=== PATIENT | male | born 1960 | race Caucasian/White ===

== ENCOUNTER 2024-04-09 06:23 | Day surgery (SDC) | payer BC, SELFPAY | END 2024-04-09 08:29 | disposition home or self-care (01) | LOC: GI 06:23 | PROVIDERS: ATTENDING PHYSICIAN Internal Medicine Gastroenterology; FAMILY PHYSICIAN Internal Medicine | DX: Z12.11 Encounter for screening for malignant neoplasm of colon (principal); K63.5 Polyp of colon; K57.30 Diverticulosis of large intestine without perforation or abscess without bleeding; K64.8 Other hemorrhoids; Z86.0100 Personal history of colon polyps, unspecified | CPT/HCPCS: 45385; 88305 ==

== ENCOUNTER → 2024-11-24 14:50 | Outpatient (REF) | payer BC, SELFPAY | LOC: PAVMRI 14:50 | PROVIDERS: ATTENDING PHYSICIAN Otolaryngology; FAMILY PHYSICIAN Internal Medicine | DX: G43.001 Migraine without aura, not intractable, with status migrainosus (principal); H90.42 Sensorineural hearing loss, unilateral, left ear, with unrestricted hearing on the contralateral side; R26.89 Other abnormalities of gait and mobility; H93.8X9 Other specified disorders of ear, unspecified ear | CPT/HCPCS: 70553; A9575 ==

== ENCOUNTER → 2024-11-25 06:21 | Outpatient (REF) | payer BC, SELFPAY | LOC: RAD 06:21 | PROVIDERS: ATTENDING PHYSICIAN Internal Medicine | DX: R42 Dizziness and giddiness (principal); H81.10 Benign paroxysmal vertigo, unspecified ear; H81.02 Meniere's disease, left ear; R09.89 Other specified symptoms and signs involving the circulatory and respiratory systems | CPT/HCPCS: 93880 ==